=== PATIENT | male | born 1970 | race Hispanic/Latino ===

== ENCOUNTER 2018-09-13 13:27 | Emergency (ER) | payer BC ==
[2018-09-13 13:54] VITALS: RESP 18; O2SAT 100
[2018-09-13 14:11] LABS: BASO # 0.02 K/mm3 (0.0-2.0); BASO % 0.2 % (0.0-3.0); EOS # 0.1 (0.0-0.7); EOS % 0.8 % (1.5-5.0); HEMOGLOBIN 14.5 g/dL (14.0-18.0); LYMPH # 1.9 (1.2-3.4); MEAN CELL VOLUME 91.3 fl (80.0-105.0); MEAN CORPUSCULAR HEMOGLOBIN 29.9 pg (25.0-35.0); MEAN CORPUSCULAR HGB CONC 32.7 g/dl (31.0-37.0); MEAN PLATELET VOLUME 10.8 fl (7.0-11.0); MONO # 0.4 (0.1-0.6); MONO % 4.7 % (1.0-6.0); RBC 4.85 10^6/uL (3.5-6.1); RED CELL DISTRIBUTION WIDTH 12.9 % (11.5-14.5); WHITE BLOOD COUNT 8.3 10^3/uL (4.5-11.0)
[2018-09-13 14:20] LABS: ALB/GLOB RATIO 1.4 (1.1-1.8); ALBUMIN 4.6 g/dL (3.0-4.8); ALT/SGPT 14 U/L (7-56); AST/SGOT 31 U/L (17-59); BLOOD UREA NITROGEN 16 mg/dL (7-21); CALCIUM 9.4 mg/dL (8.4-10.5); GFR NON-AFRICAN AMERICAN > 60
[2018-09-13 14:26] LABS: INR 1.14; PARTIAL THROMBOPLASTIN TIME 36.5 Seconds (26.9-38.3); PROTHROMBIN TIME 12.9 SECONDS (9.4-12.5)
[2018-09-13 14:27] LABS: B-TYPE NATRIURETIC PEPTIDE 442 pg/mL (0-450); TROPONIN I < 0.01 ng/mL
[2018-09-13 14:34] LABS: CK-MB 3.4 ng/mL (0.0-3.6)
--- NOTE | 2018-09-13 14:34 | RAD ---
HISTORY: chest pain, cough COMPARISON: None available. TECHNIQUE: Chest, one view. FINDINGS: Examination limited by habitus. LUNGS: Mild venous congestion. No focal consolidation. Please note that chest x-ray has limited sensitivity for the detection of pulmonary masses. PLEURA: No significant pleural effusion identified. No definite pneumothorax . CARDIOVASCULAR: Heart size appears within normal limits. No significant atherosclerotic calcification present. OSSEOUS STRUCTURES: No acute osseous abnormality identified. VISUALIZED UPPER ABDOMEN: Mild elevation of the right hemidiaphragm. OTHER FINDINGS: None. IMPRESSION: Mild venous congestion.
--- NOTE | 2018-09-13 14:36 | ED PDOC ---
Arrival/HPI - General Chief Complaint: Weakness/Neurological Deficit Historian: Patient - History of Present Illness Narrative History of Present Illness (Text): 09/13/18 14:33 Patient is a 47 yo male, past medical history of smoking, presents to the [facility] an [facility]are" due to "abnormal EKG". The patient reportedly has been feeling weak, tired, and fatigued for past 3-4 days. Reports some weakness with exertion. DENIES CHEST PAIN OR PRESSURE. Denies headache or neck pain. Denies abdominal pain or nausea. States he feels tired with any exertion. Denies leg pain or swelling. Denies any past cardiac history. Denies family cardiac history. Denies any bloody urine or stool. Does report occasional coughing. Denies hemoptyis, fevers or chills. Patient was told to immediately come to ER after EKG was performed at the [facility]. Past Medical History - Infectious Disease Hx of Infectious Diseases: None - Cardiac Hx Cardiac Disorders: No - Pulmonary Hx Respiratory Disorders: No - HEENT Hx HEENT Disorder: No - Psychiatric Hx Substance Use: No Family/Social History Family/Social History: Other (he states that he does not have history of heart disease in his family) Smoking Status: Heavy Smoker > 10 Cigarettes Daily Hx Alcohol Use: No Hx Substance Use: No Allergies/Home Meds Allergies/Adverse Reactions: Allergies seasona Allergy (Uncoded 09/13/18 13:39) CONGESTION Home Medications: Home Meds Medication Instructions Recorded Confirmed No Known Home Med 09/13/18 09/13/18 Review of Systems - Review of Systems Constitutional: Fatigue. absent: Fevers Eyes: absent: Vision Changes ENT: absent: Hearing Changes Respiratory: Cough. absent: Sputum Cardiovascular: CONNELLY. absent: Chest Pain, Palpitations, Edema, Calf Pain, Syncope Gastrointestinal: absent: Abdominal Pain, Nausea, Vomiting Genitourinary Male: absent: Dysuria, Frequency Musculoskeletal: absent: Back Pain Skin: absent: Rash Neurological: absent: Headache, Dizziness, Focal Weakness Endocrine: absent: Polyuria Hemo/Lymphatic: absent: Easy Bleeding Physical Exam Vital Signs Reviewed: Yes Vital Signs Pulse Resp BP Pulse Ox 09/13/18 13:53 91 H 18 129/91 H 100 Temperature: Afebrile Appearance: Positive for: Uncomfortable Pain Distress: Mild Mental Status: Positive for: Alert and Oriented X 3 - Systems Exam Head: Present: Atraumatic Pupils: Present: PERRL Extroacular Muscles: Present: EOMI Mouth: Present: Moist Mucous Membranes Pharnyx: No: ERYTHEMA Neck: Present: Normal Range of Motion. No: Meningeal Signs Respiratory/Chest: Present: Wheezes, Rhonchi. No: Respiratory Distress, Accessory Muscle Use Cardiovascular: Present: Regular Rate and Rhythm, Murmurs (strong systolic murmur) Abdomen: No: Tenderness Rectal: No: Gross Blood Upper Extremity: No: Cyanosis Lower Extremity: No: Edema, CALF TENDERNESS Neurological: Present: Motor Func Grossly Intact, Normal Sensory Function Skin: Present: Diaphoretic, Pale Psychiatric: Present: Alert, Oriented x 3, Normal Insight, Normal Concentration, Anxious Medical Decision Making ED Course and Treatment: Patient is a smoker. Sent with history of [facility]" [facility]. Patient denies any chest pain or shortness of breath at rest. No pleuritic pain. Has history of cough. EKG from outside facility reviewed. We obtained EKG here immediately as well. He continues to deny any chest pain or pressure or nausea. EKG reveals a normal sinus rhythm rate of 97 with prolonged qt, inferior st changes. I reviewed this EKG immediately with Dr. Murray on-call cardiac cath banquet steward. After review of EKGs as well as current symptoms it was felt that initial presentation not consistent with acute AL, although serial exams contiu ed. 09/13/2018 14:13 Chest X-ray IMPRESSION: Mild venous congestion. Dictator: Katerina Mortensen MD 09/13/18 14:53 With re-exam, he appears comfortable, continues to deny pain or acute onset of any discomfort. He has heart murmur noted on exam, states he has been told this before and a banquet steward has evaluated him "four years ago" but no evaluation recently. Labs reviewed. Patient will be admitted for further monitoring and cardiac evaluation. Aspirin ordered. Will consult banquet steward and admit to on-call physician. 09/13/18 15:16 I have discussed with patient chest xray reading, abnormal EKG, as well as heart murmur in laymen's terms. He has not seen his banquet steward in "four years". I have discussed with him indications for admission and cardiac monitoring. He states he saw Dr. Mosher in the past, Dr. Mosher will be paged. Patient is alert and oriented. He denies pain or discomfort. He is not hypoxic or short of breath. He has no acute neuro deficits. I have discussed with him in laymens terms MULTIPLE TIMES ABNORMAL heart murmur as well as abnormal labs, cxr and abnormal EKG, specifically risk of collapse, sudden heart attack or heart rupture or passing out or disability, he expresses understanding of stated risks and is able to repeat back stated recommendations for admission, indications, and repeat back risks of signing out of the Emergency Department against medical advice. I informed him I spoke directly to Dr. Mosher about abnormal findings and have consulted him as well. Mabel Cruz RN, witnessed. 09/13/18 16:10 Leaving Against Medical Advice (AMA): The patient is choosing to leave against medical advice. I have personally explained to the patient that choosing to do so may result in permanent bodily harm, disability, or . I have discussed at great length that without further evaluation and monitoring there may be unforeseen circumstances and/or deterioration causing permanent bodily harm or as a result of their choice . The patient is alert, oriented, and shows the mental capacity to make clear decisions regarding the patients health care at this time. The patient continues to wish to leave against medical advice. In light of the patients decision to leave against medical advice, follow-up has been arranged and the patient is aware of the importance to following up as instructed. The patient has been advised that they should return to the emergency room immediately if they change their mind at any time, or if their condition begins to change or worsen in any way. 09/13/18 16:25 - Lab Interpretations Lab Results: PT 12.9 SECONDS (9.4-12.5) H 09/13/18 13:45 INR 1.14 09/13/18 13:45 APTT 36.5 Seconds (26.9-38.3) 09/13/18 13:45 Troponin I < 0.01 ng/mL 09/13/18 13:45 NT-Pro-B Natriuret Pep 442 pg/mL (0-450) 09/13/18 13:45 Total Bilirubin 0.3 mg/dL (0.2-1.3) 09/13/18 13:45 AST 31 U/L (17-59) 09/13/18 13:45 ALT 14 U/L (7-56) 09/13/18 13:45 Alkaline Phosphatase 58 U/L (38-126) 09/13/18 13:45 Total Protein 7.8 g/dL (5.8-8.3) 09/13/18 13:45 Albumin 4.6 g/dL (3.0-4.8) 09/13/18 13:45 Globulin 3.2 gm/dL 09/13/18 13:45 Albumin/Globulin Ratio 1.4 (1.1-1.8) 09/13/18 13:45 - RAD Interpretation Radiology Orders: 09/13/18 13:53 CHEST PORTABLE [RAD] Stat - Medication Orders Current Medication Orders: Discontinued Medications Aspirin (Aspirin) 325 mg PO STAT STA Stop: 09/13/18 13:54 Last Admin: 09/13/18 13:59 Dose: 325 mg Disposition/Present on Arrival - Present on Arrival Any Indicators Present on Arrival: No History of DVT/PE: No History of Uncontrolled Diabetes: No Urinary Catheter: No History of Decub. Ulcer: No History Surgical Site Infection Following: None - Disposition Have Diagnosis and Disposition been Completed?: Yes Diagnosis: Abnormal EKG, Heart murmur, Dyspnea on exertion, Abnormal chest xray Disposition: HOSPITALIZED Disposition Time: 15:18 Patient Plan: Admission, Telemetry Condition: SERIOUS Forms: [email or web address] ([place])
[2018-09-13 16:27] VITALS: BP 123/56; PULSE 79; TEMP 98
--- NOTE | 2018-09-14 07:44 | CARD ---
APPROVED REPORT Date of service: 09/13/2018 EKG Measurement Heart [id number] <Conclusion> Normal sinus rhythm Prolonged QT Abnormal ECG
== END 2018-09-13 16:28 | disposition left against medical advice (07) ==
LOC: ED 13:27
DX: R01.1 Cardiac murmur, unspecified (principal); R06.00 Dyspnea, unspecified; R91.8 Other nonspecific abnormal finding of lung field; R94.31 Abnormal electrocardiogram [ECG] [EKG]